=== PATIENT | male | born 1985 | race Caucasian/White ===

== ENCOUNTER 2023-06-07 16:18 | Emergency (ER) | payer MEDICAID ==
[~2023-06-07] VITALS: Ht 175.3 cm; Wt 73.5 kg
[2023-06-07 16:28] VITALS: BP_SYST 119; PULSE 87; RESP 19; TEMP 98.2; O2SAT 100
== END 2023-06-07 19:33 | disposition left against medical advice (07) ==
LOC: SED 16:18
DX: R21 Rash and other nonspecific skin eruption (principal); Z53.21 Procedure and treatment not carried out due to patient leaving prior to being seen by health care provider
CPT/HCPCS: 99281